=== PATIENT | female | born 1965 | race American Indian/Alaskan Native ===

== ENCOUNTER 2019-11-10 05:50 | Day surgery (SDC) | payer BC, OTHER ==
[~2019-11-10] VITALS: Ht 154.9 cm; Wt 69.8 kg
[~2019-11-10 05:50] MED LIST: BUPROPION XL300 MG PO; CALCIUM 600 +1 EAC3 PO; CELEXA20 MG PO; DITROPAN XL10 MG PO; ESTRADIOL0.5 MG PO; LEVOTHYROXINE75 MCG PO; MULTI VITAMIN1 EACH PO; PREMARIN0.625 MG PO; VITAMIN D350 MC2 PO
[2019-11-10] MEDS ORDERED: CELECOXIB200 MG PO (08:13)
[2019-11-10] MEDS ORDERED: HYDROCODON-ACE1 EA11 PO (08:13)
--- NOTE | 2019-11-10 08:28 | NUR ---
11/10/19 0828 Kristina Bond 0802 PT ARRIVED IN PACU SLEEPY WITH NO C/O'S. R SHOULDER DRSG WITH MODERATE DRAINAGE NOTED. VERBAL ORDER RECEIVED FROM . 0805 ABD PLACED OVER R SHOULDER SURGERY SITE AND KRISTEN WRAP USED TO KEEP DRSG INTACT. 0810 CRYO CUFF PLACED ON R SHOULDER. 0820 TAKING SIPS OF WATER. NO C/O'S.
--- NOTE | 2019-11-10 08:39 | NUR ---
PT IS BACK TO DS FROM PACU. SHE IS DROWS, BUT RESPONDS APPROPRIATELY TO QUESTIONS. SHE HAS WATER ON BEDSIDE TABLE. CALL LIGHT WITHIN REACH. NO ADDITIONAL NEEDS AT THIS TIME.
--- NOTE | 2019-11-10 09:37 | NUR ---
PT REPORTS NO PAIN STILL. SHE WOULD LIKE TO TRY SOME JELLO. SHE IS TOLERATING WATER. CALL LIGHT WITHIN REACH. NO ADDITIONAL NEEDS AT THIS TIME.
--- NOTE | 2019-11-10 09:51 | OR ---
[facility] [address] [facility] [place], [place] [address] Signed DATE OF OPERATION: 11/10/2019 SURGEON: Katia Weems MD PREOPERATIVE DIAGNOSIS: Partial rotator cuff tear, right shoulder. POSTOPERATIVE DIAGNOSES: 1. Partial rotator cuff tear, right shoulder. 2. Labral tear, right shoulder. OPERATION PERFORMED: 1. Right shoulder arthroscopy, diagnostic with minimal debridement. 2. Arthroscopic labral repair. ELIGIBILITY CLERK: None. ANESTHESIA: General. BLOOD LOSS: Minimal. IMPLANTS: One 2.9 PushLock. BRIEF HISTORY: Coreen is a 54-year-old female with pain in her shoulder. She had failed nonoperative treatment. Risks and benefits of operative intervention were discussed and she elected to proceed. DESCRIPTION OF PROCEDURE: Once consent was obtained, she was taken to the operating room. After adequate anesthesia, she was placed in a beach chair position. All downside pressure points well padded. The shoulder was prepped and draped in a standard sterile fashion. The shoulder was injected with 15 mL 0.25% Marcaine with epinephrine as was subacromial space. Standard posterior portal was established and scope was introduced in the shoulder. Electronically Signed By: KATIA WEEMS MD 11/10/19 0951 PATIENT NAME: COREEN BAUTISTA OPERATIVE REPORT DATE OF : 63 REPORT #: [id number] PHYSICIAN: KATIA WEEMS MD PCP: KAREN,PUSHPA BUYER INTERN-C REPORT IS CONFIDENTIAL AND NOT TO BE RELEASED WITHOUT AUTHORIZATION [facility] [address] [facility] [place], [place] [address] Signed ARTHROSCOPIC FINDINGS: Glenohumeral surfaces were intact. Biceps and biceps anchor were intact. There was a 1 cm tear of the labrum anterosuperiorly with surrounding significant synovitis. The undersurface of the rotator cuff showed a 20-30% articular-sided partial tear. The rest of the rotator cuff was intact. The subacromial space showed marked thickening and bursitis with bright red inflammation throughout. DESCRIPTION OF OPERATION: After diagnostic arthroscopy, standard anterior portal was established using an outside-in technique. The labrum was debrided as was the glenoid rim. This was taken down to a bleeding bony bed. The fiber loop was then placed around the labrum and a single PushLock was then used to anchor the labrum to the anterior glenoid. Excellent bleeding was obtained, and excellent fixation. The suture ends were cut. Attention was then turned to the subacromial space. The scope was placed into the subacromial space and a standard lateral portal was made using combination of Mitek VAPR and the shaver. The bursa was removed in total to evaluate the inferior acromion and the rotator cuff with which found to be intact. She had a type 1 acromion. The scope was then withdrawn, portals closed with 3-0 nylon and dressed with ProWick dressing. She tolerated the procedure well. All sponge, needle, and instrument counts were correct. Katia Weems MD BA/ROSETTA /[id number] Copies: ~ Electronically Signed By: KATIA WEEMS MD 11/10/19 0951 PATIENT NAME: COREEN BAUTISTA OPERATIVE REPORT DATE OF : 63 REPORT #: [id number] PHYSICIAN: KATIA WEEMS MD PCP: PUSHPA JONES REPORT IS CONFIDENTIAL AND NOT TO BE RELEASED WITHOUT AUTHORIZATION
--- NOTE | 2019-11-10 11:29 | NUR ---
LE 1035: PT REPORTS NEEDING TO GET UP AND USE THE RESTROOM. SHE IS ASSISTED IN GETTING DRESSED AND HER DRESSING RESITUATED PRIOR TO GETTING UP TO THE RESTROOM. SHE IS ABLE TO VOID QS. HER CRYO CUFF IS PUT IN PLACE FOR HER. IS CALLED TO HEAD THIS WAY. LE 1105: PT IS GIVEN VERBAL DC INSTRUCTIONS. SHE VERBALIZES UNDERSTANDING. SHE ASKS QUESTIONS, WHICH ARE ANSWERED. SHE IS TAKEN TO VEHICLE VIA WC, SHE IS ABLE TO TRANSFER HERSELF FROM WC TO VEHICLE.
== END 2019-11-10 11:20 | disposition home or self-care (01) ==
LOC: DS 05:50
PROVIDERS: Specialist
PROC: 0MM14ZZ Reattachment of Right Shoulder Bursa and Ligament, Percutaneous Endoscopic Approach (ICD-10-PCS; principal; 2019-11-10 06:45)
DX: S43.431A Superior glenoid labrum lesion of right shoulder, initial encounter (principal); M75.111 Incomplete rotator cuff tear or rupture of right shoulder, not specified as traumatic; M65.811 Other synovitis and tenosynovitis, right shoulder; E03.9 Hypothyroidism, unspecified; F32.9 Major depressive disorder, single episode, unspecified; Z79.899 Other long term (current) drug therapy; Z90.710 Acquired absence of both cervix and uterus; Z98.890 Other specified postprocedural states
CPT/HCPCS: 00450; 64415; 76942; C1713; J0690; J1100; J1885; J2001; J2250; J2405; J2704; J2795; J3010; J7121

== ENCOUNTER 2025-05-31 11:43 | Day surgery (SDC) | payer BC, OTHER ==
[~2025-05-31] VITALS: Ht 154.9 cm; Wt 63.5 kg
[~2025-05-31 11:43] MED LIST changes: +ACETAMINOPHEN500 MG PO; +CELECOXIB200 MG PO; +CITALOPRAM HBR40 MG PO; +ESTRADIOL2 MG PO; +HYDROCODON-ACE1 EA11 PO; +IBLOOD GLUCOSE TEST STRIP 1 EA TEST VI PRN; +LACTATED RINGER'S 1,000 ML IV SCH; +LEVOTHYROXINE100 MCG PO; +LEVOTHYROXINE112 MC1 PO; +LIDOCAINE HCL 1% 5 ML SDV INJ ONE; +LISINOPRIL5 MG PO; +MIDAZOLAM HCL 5 MG/5 ML VIAL IV PRN; +OXYCODON-ACETA1 EAC2 PO; +VITAMIN D325 MCG PO; +ZESTRIL2.5 MG PO; +fentaNYL citrate 100 MCG/2 ML VIAL IV PRN
[2025-05-31 12:03] VITALS: BP 142/76
[2025-05-31] MEDS ORDERED: LIOTHYRONINE SO5 MCG PO (12:24)
[2025-05-31] MEDS ORDERED: MIDAZOLAM HCL 5 MG/5 ML VIAL ONE (15:45)
[2025-05-31] MEDS ORDERED: fentaNYL citrate 100 MCG/2 ML VIAL ONE (15:45)
--- NOTE | 2025-05-31 16:45 | NUR ---
05/31/25 1645 Fercho,Danii 1638 PT ARRIVED TO PACU ON 2L VIA NC, PT ASLEEP AND PASSING GAS OFF AND ON. 1640 PT WAKES TO TACTILE STIMULI AND DENIES CONCERNS. PT REORIENTED TO PACU AND ENCOURAGED TO PASS GAS NEEDED. VSS. O2 TURNED OFF.
[2025-05-31 17:19] VITALS: BP 131/76
--- NOTE | 2025-06-02 18:33 | OR ---
[facility] [address] [place], [place] [address] Signed DATE OF OPERATION: 05/31/2025 SURGEON: Monique Valdes MD PREOPERATIVE DIAGNOSES: Surveillance colonoscopy, history of polyps x2 in 2020 (Dr. Familia Grimes). POSTOPERATIVE DIAGNOSIS: Normal colon to cecum. PROCEDURE: Total colonoscopy to cecum. ANESTHESIA: Intravenous sedation; fentanyl 100 mcg and Versed 5 mg. INDICATION: This 60-year-old woman is a patient of BLU Smith at [facility]. She is here for surveillance colonoscopy. She has a history of colonoscopy four years ago by Dr. Familia Grimes where two polyps were found. She is currently asymptomatic, has no family history. She was advised by Dr. Grimes to have repeat colonoscopy within 3-[address] Grimes is now retired and I have assumed care of this patient. She understands risk of colonoscopy including, but not limited to bleeding, infection, and perforation and wished to proceed. FINDINGS: The prep was good. Complete colonoscopy was undertaken to the cecum without problem. The entire cecum was well intubated. There was no evidence of polyps, diverticular formation, colitis, or cancer. DESCRIPTION OF PROCEDURE: The patient was brought to the endoscopy suite and placed in lateral decubitus position, given intravenous sedation to a point of slurred speech and nystagmus. Digital rectal examination was normal. An Olympus video colonoscope was passed in the rectum and manipulated throughout the colon ultimately intubating the cecum itself. The ileocecal valve and appendiceal orifice were normal. The scope was withdrawn. Examination throughout showed no sign of abnormality specifically no polyps, diverticular formation, colitis, or cancer. Quite notably, the prep was extremely good. Retroflexed view of the rectum was normal as Electronically Signed By: MONIQUE VALDES MD 06/02/25 1833 PATIENT NAME: QUIQUE BAUTISTA OPERATIVE REPORT DATE OF : 63 REPORT #: [id number] PHYSICIAN: MONIQUE VALDES MD PCP: DAY VÁZQUEZ PAC REPORT IS CONFIDENTIAL AND NOT TO BE RELEASED WITHOUT AUTHORIZATION [facility] [address] [place] [id number] Signed well. The scope was removed. The patient was taken to recovery room in good condition. CONCLUDING DIAGNOSIS: Normal colon to cecum. PLAN: Recommend repeat colonoscopy in 10 years, sooner if symptoms should develop. She will return to the ongoing care of BLU Smith at [facility]. MD ELISABET Das/MODL /[id number] cc: Day Vázquez Copies: DAY VÁZQUEZ PAC ~ Electronically Signed By: MONIQUE VALDES MD 06/02/25 1833 PATIENT NAME: QUIQUE BAUTISTA OPERATIVE REPORT DATE OF : 63 REPORT #: [id number] PHYSICIAN: MONIQUE VALDES MD PCP: DAY VÁZQUEZ PAC REPORT IS CONFIDENTIAL AND NOT TO BE RELEASED WITHOUT AUTHORIZATION
== END 2025-05-31 17:29 | disposition home or self-care (01) ==
LOC: DS 11:43
PROVIDERS: ATTEND Surgery
PROC: 0DJD8ZZ Inspection of Lower Intestinal Tract, Via Natural or Artificial Opening Endoscopic (ICD-10-PCS; principal; 2025-05-31 13:00)
DX: Z12.11 Encounter for screening for malignant neoplasm of colon (principal); Z86.0100 Personal history of colon polyps, unspecified; I10 Essential (primary) hypertension; E03.9 Hypothyroidism, unspecified; Z88.0 Allergy status to penicillin; Z88.8 Allergy status to other drugs, medicaments and biological substances
CPT/HCPCS: 99153; G0500; J2250; J3010